=== PATIENT | male | born 1975 | race Caucasian/White ===

== ENCOUNTER → 2017-12-31 | Outpatient (CLI) | payer BC, OTHER ==
--- NOTE | 2017-12-31 15:03 | 2DMMODE ---
[place] [address] 2 D/M-MODE ECHOCARDIOGRAM Name: HOWARDSOILA Rowdy Room: [facility]#: [id number] Admission: 12/31/17 Attend Phys: Yola FOX Mauricio Discharge: Date of : 73 Date of Service: 12/31/17 1502 Report #: [id number] THIS REPORT FOR: //name// APPROVED REPORT Study performed: 12/31/2017 09:02:48 EXAM: Comprehensive 2D, Doppler, and color-flow Echocardiogram Patient Location: Out-Patient Status: routine BSA: 2.48 HR: 58 bpm BP: 116/80 mmHg Other Information Study Quality: Good Indications Dizziness and Vertigo Family Hx. CAD 2D Dimensions IVSd: 9.69 (7-11mm) LVOT Diam: 21.96 (18-24mm) LVDd: 49.38 mm PWd: 11.27 (7-11mm) Ascending Ao: 32.54 (22-36mm) LVDs: 32.12 (25-40mm) Aortic Root: 25.22 mm Volumes Left Atrial Volume (Systole) LA ESV Index: 18.50 mL/m2 Aortic Valve AoV Peak Seferino.: 1.16 m/s AO Peak Gr.: 5.39 mmHg LVOT Max P.52 mmHg AO Mean Gr.: 2.80 mmHg LVOT Mean P.41 mmHg LVOT Max V: 0.94 m/s AO V2 VTI: 23.87 cm LVOT Mean V: 0.53 m/s HIPOLITO (VTI): 3.01 cm2 LVOT V1 VTI: 18.94 cm Mitral Valve E/A Ratio: 1.28 MV Decel. Time: 223.77 ms MV E Max Seferino.: 0.58 m/[place] [address] 2 D/M-MODE ECHOCARDIOGRAM Name: SOILA LAWRENCE Room: [facility]#: [id number] Admission: 12/31/17 Attend Phys: Yola FOX Mauricio Discharge: Date of : 73 Date of Service: 12/31/17 1502 Report #: [id number] MV PHT: 64.89 ms MVA (PHT): 3.39 cm2 TDI E/Lateral E': 4.46 E/Medial E': 5.27 Medial E' Seferino.: 0.11 m/s Lateral E' Seferino.: 0.13 m/s Pulmonary Valve PV Peak Seferino.: 0.72 m/s PV Peak Gr.: 2.06 mmHg Tricuspid Valve RAP Estimate: 5.00 mmHg TR Peak Gr.: 27.88 mmHg RVSP: 32.88 mmHg PA Pressure: 32.88 mmHg Left Ventricle The left ventricle is normal size. There is normal LV segmental wall motion. There is normal left ventricular wall thickness. Left ventricular systolic function is normal. LVEF is 60-65%. The left ventricular diastolic function is normal. Right Ventricle The right ventricle is normal size. The right ventricular systolic function is normal. Atria The left atrium size is normal. The right atrium size is normal. Aortic Valve The aortic valve is normal in structure. No aortic regurgitation is present. There is no aortic valvular stenosis. Mitral Valve The mitral valve is normal in structure. Trace mitral regurgitation. No evidence of mitral valve stenosis. Tricuspid Valve The tricuspid valve is normal in structure. Trace tricuspid regurgitation. Pulmonic Valve The pulmonary valve is normal in structure. [place] [address] 2 D/M-MODE ECHOCARDIOGRAM Name: SOILA LAWRENCE Room: [facility]#: [id number] Admission: 12/31/17 Attend Phys: Yola FOX Mauricio Discharge: Date of : 73 Date of Service: 12/31/17 1502 Report #: [id number] Great Vessels The aortic root is normal in size. IVC is normal in size and collapses >50% with inspiration. Pericardium There is no pericardial effusion. <Conclusion> The left ventricle is normal size. There is normal left ventricular wall thickness. Left ventricular systolic function is normal. LVEF is 60-65%. The left ventricular diastolic function is normal. Trace mitral regurgitation. Trace tricuspid regurgitation. Trace pulmonic regurgitation. IVC is normal in size and collapses >50% with inspiration. <ELECTRONICALLY SIGNED> By: Mariano Cintron MD, FACC 12/31/17 1502 150 150 Mariano Cintron MD, FACC /INF
== END ==
LOC: M.ULTRA 07:51 → M.CRD 09:00
DX: E80.7 Disorder of bilirubin metabolism, unspecified (principal); R42 Dizziness and giddiness; Z82.49 Family history of ischemic heart disease and other diseases of the circulatory system